=== PATIENT | female | born 1975 | race American Indian/Alaskan Native ===

== ENCOUNTER 2019-04-28 16:22 | Emergency (ER) | payer OTHER, MEDICAID, SELFPAY ==
[2019-04-28 16:39] VITALS: BP 147/97; PULSE 118; RESP 18; TEMP 36.8; O2SAT 98
[2019-04-28 16:56] LABS: Add Manual Diff / Slide Review NO; Basophils Absolute Auto 0 /uL (0-100); Basophils Percent Auto 0.5 % (0-2); Eosinophils Absolute Auto 100 /uL (0-450); Eosinophils Percent Auto 1.1 % (2-4); Hematocrit 36.2 % (36-46); Hemoglobin 12.4 g/dL (12.0-16.0); Lymphocytes Absolute Auto 1900 /uL (1100-4500); Mean Corpuscular HGB Conc 34.4 % (30-36); Mean Corpuscular Hemoglobin 27.1 PG (26-34); Mean Corpuscular Volume 78.8 fL (80-100); Monocytes Absolute Auto 400 /uL (0-900); Monocytes Percent Auto 5.8 % (3-14); Neutrophils Absolute Auto 4300 /uL (1500-7000); Neutrophils Percent Auto 64.6 % (50-75); Platelet Count 343 X10^3/uL (150-400); Red Blood Cell Count 4.59 X10^6/uL (4.0-5.2); Red Cell Distribution Width 13.8 % (11.6-14.8); White Blood Cell Count 6.7 X10^3/uL (4.5-11.0)
[2019-04-28] MEDS: SODIUM CHLORIDE 0.9% 1,000 ML 1000 ML IV (16:56)
[2019-04-28] MEDS: ONDANSETRON 4 MG/2 ML INJ IV (16:59)
[2019-04-28 17:03] LABS: PCO2 VBG 41.9 mmHg (45-50); PO2 VBG 38 mmHg (35-45); pH VBG 7.37 (7.33-7.43)
[2019-04-28 17:04] LABS: HCO3 VBG 25 mmol/L (23-28); Oxygen Saturation VBG 70 % (70-75); Total CO2 VBG 26 mmol/L (24-29)
--- NOTE | 2019-04-28 17:04 | ED_ITS ---
HPI - General Adult General Chief complaint: Diabetic Problem Stated complaint: HIGH SUGAR LEVELS Time Seen by Provider: 04/28/19 16:48 Source: patient Mode of arrival: Ambulatory Limitations: no limitations History of Present Illness HPI narrative: Patient is a 43-year-old female with insulin-dependent diabetes and restless leg syndrome presenting with elevated glucose greater than 600 by her PCP. She states that insurance will no longer cover her full dose of insulin in fact they're only giving her half. She has not had any insulin in the last 3 days. She went to establish care with a new PCP who checked her glucose level and it was greater than 600. She has been dry heaving and nauseous for the last 2 days she has minimal abdominal pain. She vomited 1 time. She denies any chest pain. No fever or chills. Related Data Home Medications Medication Instructions Recorded Confirmed acetaminophen [Tylenol Extra 500 mg PO Q4HP PRN #0 04/21/12 04/28/19 Strength] buprenorphine-naloxone 1 film SUBLINGUAL BID 04/28/19 04/28/19 carbidopa-levodopa 0.5 tab PO BEDTIME 04/28/19 04/28/19 insulin glargine [Lantus U-100 80 unit SUBCUT QPM 04/28/19 04/28/19 Insulin] lisinopril 10 mg PO DAILY 04/28/19 04/28/19 Allergies Allergy/AdvReac Type Severity Reaction Status Date / Time tramadol Allergy Mild HIVES Verified 04/28/19 16:59 promethazine AdvReac Mild LEGS Verified 04/28/19 16:59 JITTERY Review of Systems Review of Systems Narrative: GENERAL: Denies chills, fatigue, malaise, fever, sweats, travel HEENT: Denies sinus pain, ear pain, sore throat, difficulty swallowing, neck pain RESPIRATORY: Denies dyspnea, cough, wheezing, hemoptysis, sputum. CARDIOVASCULAR: Denies chest pain, palpitations, orthopnea, edema GASTROINTESTINAL: See HPI : Denies dysuria, frequency, incontinence, hematuria, urinary retention, flank pain. MUSCULOSKELETAL: Denies weakness, joint pain, or bony pain SKIN: No rash, no erythema, no pruritus NEUROLOGIC: Denies weakness, dizziness, headache, numbness, change in speech, confusion PSYCHIATRIC: No concerning psychosocial issues. 12 point review of systems is negative except for those stated above and HPI Patient History Medical History Diabetes (Acute) Restless leg (Acute) Social History Smoking Status: Never smoker Smoking Status: Never smoker alcohol intake frequency: 0-2 drinks per day Exam Initial Vital Signs Initial Vital Signs: Vital Signs Temperature 98.2 F 04/28/19 16:39 Pulse Rate 118 H 04/28/19 16:39 Respiratory Rate 18 04/28/19 16:39 Blood Pressure 147/97 H 04/28/19 16:39 Pulse Oximetry 98 04/28/19 16:39 GENERAL: Overweight well-appearing female HEENT: Head atraumatic,EOMI, pupils reactive, face symmetric CARDIOVASCULAR: Regular rate and rhythm without murmurs, rubs or gallops. RESPIRATORY: Breath sounds equal bilaterally, no wheezes rales or rhonchi. ABDOMEN: Soft, nontender. Normoactive bowel sounds all 4 quadrants. No guarding or rebound. EXTREMITIES: Normal range of motion, no clubbing or edema. Neurovascularly intact NEUROLOGICAL: Alert and oriented x4.Normal gait and speech. Cranial nerves II through XII grossly intact. SKIN: Warm, dry, no laceration, no petechiae, no rashes or lesions. Course Orders Ordered: ED Orders 04/28/19 16:38 Venous Blood Gas Stat 04/28/19 16:45 Complete Blood Count AUTO DIFF Stat Comprehensive Metabolic Panel Stat Ketones (Beta-Hydroxybutyrate) Stat Lactate (Lactic Acid) Stat Procalcitonin Stat 04/28/19 16:52 EKG-12 Lead Stat 04/28/19 17:24 Blood Culture Stat Discontinued Medications Sodium Chloride (Normal Saline 0.9%) 1,000 mls @ 1,000 mls/hr IV BOLUS ONE Stop: 04/28/19 17:40 Last Infusion: 04/28/19 18:07 Dose: 0 mls/hr Documented by: Admin: 04/28/19 16:56 Dose: 1,000 mls/hr Documented by: ALEKSANDAR Insulin Glargine (Lantus (Vial)) 80 unit SUBCUT NOW ONE Stop: 04/28/19 18:00 Last Admin: 04/28/19 18:13 Dose: 80 unit Documented by: ALEKSANDAR Cosigned by: KEL Ketorolac Tromethamine (Toradol) 30 mg IV NOW ONE Stop: 04/28/19 18:09 Last Admin: 04/28/19 18:13 Dose: 30 mg Documented by: ALEKSANDAR Ondansetron HCl (Zofran) 4 mg IV NOW ONE Stop: 04/28/19 16:42 Last Admin: 04/28/19 16:59 Dose: 4 mg Documented by: ALEKSANDAR Vital Signs Vital signs: Vital Signs - 8 hr 04/28/19 16:39 04/28/19 17:28 04/28/19 19:23 Temperature 98.2 F Pulse Rate 118 H 99 H 102 H Respiratory Rate 18 15 Blood Pressure 147/97 H Blood Pressure [Left Arm] 138/83 149/95 H Pulse Oximetry 98 98 100 Medical Decision Making Lab Data Lab results reviewed: Yes I reviewed the patient's lab results. Result diagrams: 04/28/19 16:45 04/28/19 16:45 Labs: Lab Results 04/28/19 04/28/19 04/28/19 Range/Units 16:38 16:45 16:45 WBC 6.7 (4.5-11.0) X10^3/uL RBC 4.59 (4.0-5.2) X10^6/uL Hgb 12.4 (12.0-16.0) g/dL Hct 36.2 (36-46) % MCV 78.8 L (80-100) fL MCH 27.1 (26-34) PG MCHC 34.4 (30-36) % RDW 13.8 (11.6-14.8) % Plt Count 343 (150-400) X10^3/uL Neut % (Auto) 64.6 (50-75) % Lymph % (Auto) 28.0 (25-40) % [place] % (Auto) 5.8 (3-14) % Eos % (Auto) 1.1 L (2-4) % Baso % (Auto) 0.5 (0-2) % Neut # (Auto) 4300 (8202-0179) /uL Lymph # (Auto) 1900 (6190-5508) /uL [place] # (Auto) 400 (0-900) /uL Eos # (Auto) 100 (0-450) /uL Baso # (Auto) 0 (0-100) /uL VBG pH 7.37 (7.33-7.43) VBG pCO2 41.9 L (45-50) mmHg VBG pO2 38 (35-45) mmHg VBG HCO3 25 (23-28) mmol/L VBG Total CO2 26 (24-29) mmol/L VBG O2 Saturation 70 (70-75) % VBG Base Excess -1.0 L (0-4) mmol/L Sodium (137-145) mmol/L Potassium (3.4-5.1) mmol/L Chloride (98-107) mmol/L Carbon Dioxide (22-32) mmol/L BUN (7-17) mg/dL Creatinine (0.52-1.04) mg/dL Estimated GFR (>60) mL/min BUN/Creatinine Ratio (6-22) Glucose (70-100) mg/dL Lactate (0.7-2.1) mmol/L Calcium (8.4-10.2) mg/dL Total Bilirubin (0.2-1.3) mg/dL AST (14-36) IU/L ALT (<35) IU/L Alkaline Phosphatase (38-126) U/L Total Protein (6.3-8.2) g/dL Albumin (3.5-5.0) g/dL Globulin (1.7-4.1) g/dL Albumin/Globulin Ratio (1.0-2.8) Procalcitonin < 0.05 (<0.5) ng/mL Ketones (<0.27) mmol/L 04/28/19 04/28/19 Range/Units 16:45 16:45 WBC (4.5-11.0) X10^3/uL RBC (4.0-5.2) X10^6/uL Hgb (12.0-16.0) g/dL Hct (36-46) % MCV (80-100) fL MCH (26-34) PG MCHC (30-36) % RDW (11.6-14.8) % Plt Count (150-400) X10^3/uL Neut % (Auto) (50-75) % Lymph % (Auto) (25-40) % [place] % (Auto) (3-14) % Eos % (Auto) (2-4) % Baso % (Auto) (0-2) % Neut # (Auto) (2465-8246) /uL Lymph # (Auto) (7817-5239) /uL [place] # (Auto) (0-900) /uL Eos # (Auto) (0-450) /uL Baso # (Auto) (0-100) /uL VBG pH (7.33-7.43) VBG pCO2 (45-50) mmHg VBG pO2 (35-45) mmHg VBG HCO3 (23-28) mmol/L VBG Total CO2 (24-29) mmol/L VBG O2 Saturation (70-75) % VBG Base Excess (0-4) mmol/L Sodium 131 L (137-145) mmol/L Potassium 4.5 (3.4-5.1) mmol/L Chloride 95 L (98-107) mmol/L Carbon Dioxide 22 (22-32) mmol/L BUN 17 (7-17) mg/dL Creatinine 0.60 (0.52-1.04) mg/dL Estimated GFR > 60.0 (>60) mL/min BUN/Creatinine Ratio 28.3 H (6-22) Glucose 606 H* (70-100) mg/dL Lactate 1.5 (0.7-2.1) mmol/L Calcium 9.1 (8.4-10.2) mg/dL Total Bilirubin 0.4 (0.2-1.3) mg/dL AST 16 (14-36) IU/L ALT 16 (<35) IU/L Alkaline Phosphatase 168 H (38-126) U/L Total Protein 7.3 (6.3-8.2) g/dL Albumin 4.2 (3.5-5.0) g/dL Globulin 3.1 (1.7-4.1) g/dL Albumin/Globulin Ratio 1.4 (1.0-2.8) Procalcitonin (<0.5) ng/mL Ketones 0.28 H (<0.27) mmol/L Point of Care Testing Glucose POC 382 Point of care testing: Point of Care Testing Glucose POC 382 ECG Data Attestation: I personally reviewed and interpreted this ECG as follows: Prior ECG tracings: available for review Interpretation: Normal sinus rhythm rate 94 p.r. interval 133 QRS [address] elevation or depressions similar to previous EKGs MDM Narrative Medical decision making narrative: Patient has no anion gap no sign of DKA. She has hyperglycemia. We have actually called and confirmed with [facility] that she has or full dosing of insulin ready to be picked up. She is given her nightly dose of Lantus her glucose has come down nicely. She is not vomiting. She will be discharged. Discharge Plan Departure Patient Disposition: Home Clinical Impression: Acute hyperglycemia Discharge Date/Time: 04/28/19 19:25 Instructions: DI for Hyperglycemia -- Adult Activity Restrictions/Additional Instructions: *You have been diagnosed with diabetes with high glucose *What to do: Please take your insulin as directed so this does not become a problem, you may need to call You got 80 units of Lantus in the emergency department-this is your nightly dose, do not take Lantus tonight. *Continue to take medications as directed Prescriptions are ready a Maria Ines mansfield *Follow up with your primary care provider in 2-3 days *Return to ER if you should have persistently elevated glucose, abdominal pain, vomiting or any new, worsening or concerning symptoms Prescriptions: No Action acetaminophen [Tylenol Extra Strength] 500 MG tablet 500 mg PO Q4HP PRN (Reason: pain) Qty: 0 RF: 0 lisinopril 10 mg tablet 10 mg PO DAILY RF: 0 carbidopa-levodopa 25-100 mg tablet 0.5 tab PO BEDTIME RF: 0 buprenorphine-naloxone 8-2 mg film 1 film sublingual BID RF: 0 Lantus U-100 Insulin 100 unit/mL Solution 80 unit SUBCUT QPM RF: 0 Referrals: Jose L Bocanegra MD [Primary Care Provider] - Latisha Macedo PA-C [Non-Staff] -
[2019-04-28 17:08] LABS: Alanine Aminotransferase 16 IU/L (<35); Albumin 4.2 g/dL (3.5-5.0); Albumin Globulin Ratio 1.4 (1.0-2.8); Alkaline Phosphatase 168 U/L (38-126); Aspartate Aminotransferase 16 IU/L (14-36); BUN Creatinine Ratio 28.3 (6-22); Bilirubin Total 0.4 mg/dL (0.2-1.3); Blood Urea Nitrogen 17 mg/dL (7-17); Calcium 9.1 mg/dL (8.4-10.2); Carbon Dioxide 22 mmol/L (22-32); Chloride 95 mmol/L (98-107); Estimated Glomerular Filt Rate > 60.0 mL/min (>60); Globulin 3.1 g/dL (1.7-4.1); HEMOLYSIS < 15 (0-50); Lactate (Lactic Acid) 1.5 mmol/L (0.7-2.1); Potassium 4.5 mmol/L (3.4-5.1); Sodium 131 mmol/L (137-145); Total Protein 7.3 g/dL (6.3-8.2)
[2019-04-28 17:10] LABS: Glucose 606 mg/dL (70-100); Ketones (Beta-Hydroxybutyrate) 0.28 mmol/L (<0.27)
[2019-04-28 17:23] LABS: Procalcitonin < 0.05 ng/mL (<0.5)
[2019-04-28 17:28] VITALS: BP 138/83; PULSE 99; RESP 15; O2SAT 98
--- NOTE | 2019-04-28 17:35 | PC.NURSE ---
Spoke w/ [facility] pharmacist. He states patient has not picked up humulog and lantus since 11/27/18. States her insurance does cover Lantus and has new active script.
[2019-04-28] MEDS: INSULIN GLARGINE 100 UNIT/ML 10ML VIAL 80 UNIT SUBCUT (18:13)
[2019-04-28] MEDS: KETOROLAC 60 MG/2 ML VIAL 30 MG IV (18:13)
[2019-04-28 19:23] VITALS: BP 149/95; PULSE 102; O2SAT 100
== END 2019-04-28 19:25 | disposition home or self-care (01) ==
PROVIDERS: Emergency Provider Emergency Medicine; PCP Internal Medicine
DX: E11.65 Type 2 diabetes mellitus with hyperglycemia (principal); Z79.4 Long term (current) use of insulin
CPT/HCPCS: 36415; 80053; 82009; 82805; 82962; 83605; 84145; 85025; 87040; 93005; 93010; 96372; 96374; 96375; 99282; 99284; J1885; J2405